=== PATIENT | male | born 1990 | race Caucasian/White ===

== ENCOUNTER 2023-11-11 10:00 | Outpatient (CLI) | payer OTHER ==
--- NOTE | 2023-11-11 15:54 | XRAY Report ---
PROCEDURE: Foot 3+V LT INDICATIONS: FOOT PAIN, LEFT TECHNIQUE: 3 views of the foot were acquired. COMPARISON: None. FINDINGS: Bones: No fractures or dislocations. Mild hallux valgus deformity with bunion noted. Soft tissues: No tibiotalar joint effusion. Achilles tendon appears normal. IMPRESSION: No acute bony abnormality. Reviewed by: Hardy Melvin MD on 11/11/2023 3:53 PM PDT Approved by: Hardy Melvin MD on 11/11/2023 3:53 PM PDT Station ID: [id number]
== END 2023-11-11 10:15 | disposition home or self-care (01) ==
LOC: DI.N 10:00
PROVIDERS: ATTEND Family Medicine
DX: M79.672 Pain in left foot (principal)
CPT/HCPCS: 36415; 80048; 84550

== ENCOUNTER 2023-11-14 11:41 | Outpatient (CLI) | payer OTHER ==
[2023-11-14 19:12] LABS: CALCIUM 9.6 mg/dL (8.5-10.3); CREATININE 0.8 mg/dL (0.6-1.3); POTASSIUM 4.4 mmol/L (3.5-4.5); URIC ACID 7.4 mg/dL (4.4-7.6)
== END 2023-11-14 11:42 | disposition home or self-care (01) ==
LOC: LAB.N 11:41
PROVIDERS: ATTEND Family Medicine
DX: M79.672 Pain in left foot (principal)
CPT/HCPCS: 36415; 80048; 84550